=== PATIENT | male | born 1960 | race Caucasian/White ===

== ENCOUNTER 2023-01-11 14:20 | Emergency (ER) | payer OTHER, SELFPAY ==
[2023-01-11 14:26] VITALS: BP 154/89; PULSE 81; RESP 18; TEMP 36.4; O2SAT 98; BMI 32.6
--- NOTE | 2023-01-11 14:39 | ED_ITS ---
HPI - General Adult General Chief complaint: Wound/Laceration Stated complaint: UPPER EXTREMITY INJURY L HAND Time Seen by Provider: 01/11/23 14:33 Source: patient Mode of arrival: walk-in Limitations: no limitations History of Present Illness HPI narrative: 62year old male presents with chief complaint of left index finger laceration. wound is less than one centimeter, superficial flap.pt states he was using a u tility knife just prior to arrival and cut his finger. He is uncertain of his last tetanus shot.no bleeding at this time. Wound is superficial. Related Data Allergies Allergy/AdvReac Type Severity Reaction Status Date / Time No Known Drug Allergies Allergy Verified 01/11/23 14:28 Review of Systems ROS Narrative All Systems are negative except as noted/marked.All systems reviewed and otherwise negative PFSH PFSH Social History Smoking status: Never smoker Exam Narrative Exam Narrative: Nurses note and vital signs reviewed and patient is not hypoxic. General: The patient appears well and in no apparent distress. Patient is resting comfortably on cart. Skin: Warm, dry, no pallor noted. There is no rash noted. Head: Normocephalic, atraumatic Musculoskeletal: skin flap laceration noted to the left index finger less than 1 cm, no active bleeding remainder of extremities are unremarkable. No pain. No other injury Neurological: A&O x4, normal speech Psychiatric: Cooperative Constitutional Vital Signs, click to edit/add: Last Vital Signs Temp 97.6 F 01/11/23 14:26 Pulse 81 01/11/23 14:26 Resp 18 01/11/23 14:26 BP 154/89 H 01/11/23 14:26 Pulse Ox 98 01/11/23 14:26 O2 Del Method Room Air 01/11/23 14:26 Course Vital Signs Vital signs: Vital Signs Temperature 97.6 F 01/11/23 14:26 Pulse Rate 81 01/11/23 14:26 Respiratory Rate 18 01/11/23 14:26 Blood Pressure 154/89 H 01/11/23 14:26 Pulse Oximetry 98 01/11/23 14:26 Oxygen Delivery Method Room Air 01/11/23 14:26 Temperature 97.6 F 01/11/23 14:26 Pulse Rate 81 01/11/23 14:26 Respiratory Rate 18 01/11/23 14:26 Blood Pressure 154/89 H 01/11/23 14:26 Pulse Oximetry 98 01/11/23 14:26 Oxygen Delivery Method Room Air 01/11/23 14:26 Medical Decision Making MDM Narrative Medical decision making narrative: patient presents to er with laceration from a utility knife just prior to arrival. wound was cleaned and soaked in Hibiclens by nursing staff. No active bleeding noted.area was reapproximated with Dermabond glue. Patient was updated with tetanus immunization. he'll be discharged home with wound care instructions. Follow-up primary care physician. Medical Records Medical records reviewed: Yes I reviewed the patient's medical records Discharge Plan Discharge Chief Complaint: Wound/Laceration Clinical Impression: Laceration Time of Disposition Decision: 14:48 Condition: Good Instructions: Skin Adhesive Care (ED) Stand Alone Forms: Portal Instructions Referrals: Wili Wick MD [Primary Care Provider] - 1 week
[2023-01-11] MEDS: ADACEL DIPH,PERTUSS(ACELL),TET VAC/PF 0.5 ML ADULT SYRINGE IM (14:55)
== END 2023-01-11 15:01 | disposition home or self-care (01) ==
PROVIDERS: Emergency Provider Emergency Medicine; PCP Family Medicine
DX: S61.211A Laceration without foreign body of left index finger without damage to nail, initial encounter (principal); Z23 Encounter for immunization; W26.0XXA Contact with knife, initial encounter
CPT/HCPCS: 12001; 90471; 90715; 99284